=== PATIENT | male | born 1970 | race Caucasian/White ===

== ENCOUNTER 2022-11-27 18:20 | Outpatient (REF) | payer MEDICAID, SELFPAY ==
[2022-11-27 16:23] LABS: Anion Gap 14.6 mmol/L (3-11); BUN 79 mg/dL (7-18); CO2 30.4 mmol/L (21.0-32.0); CREATININE 2.3 mg/dL (0.70-1.30); Calcium 9.6 mg/dL (8.5-10.1); Chloride 88 mmol/L (98-107); Estimated GFR 33.33 (mL/min/1.73m2); Glucose 128 mg/dL (74-106); Sodium 133 mmol/L (136-145)
[2022-11-27 16:51] LABS: Potassium 2.4 mmol/L (3.5-5.1)
[2022-11-27 18:12] LABS: Magnesium 2.3 mg/dL (1.8-2.4); NT-proBNP 920 pg/mL (<300)
== END 2022-11-27 18:21 | disposition home or self-care (01) ==
LOC: LBN 18:20
DX: N18.32 Chronic kidney disease, stage 3b (principal); K70.31 Alcoholic cirrhosis of liver with ascites; I48.11 Longstanding persistent atrial fibrillation; I50.33 Acute on chronic diastolic (congestive) heart failure
CPT/HCPCS: 80048; 83735; 83880

== ENCOUNTER 2022-12-18 23:26 | Outpatient (REF) | payer MEDICAID, SELFPAY ==
[2022-12-18 21:03] LABS: Anion Gap 8.7 mmol/L (3-11); BUN 68 mg/dL (7-18); CO2 29.3 mmol/L (21.0-32.0); CREATININE 2.1 mg/dL (0.70-1.30); Chloride 91 mmol/L (98-107); Estimated GFR 37.18 (mL/min/1.73m2); Glucose 146 mg/dL (74-106); Sodium 129 mmol/L (136-145)
[2022-12-18 21:22] LABS: Potassium 2.9 mmol/L (3.5-5.1)
== END 2022-12-18 23:27 | disposition home or self-care (01) ==
LOC: LBN 23:26
DX: I50.33 Acute on chronic diastolic (congestive) heart failure (principal)
CPT/HCPCS: 80048

== ENCOUNTER 2022-12-31 14:56 | Outpatient (REF) | payer MEDICAID, SELFPAY ==
[2022-12-31 15:56] LABS: Anion Gap 8.4 mmol/L (3-11); BUN 54 mg/dL (7-18); CO2 30.6 mmol/L (21.0-32.0); CREATININE 1.5 mg/dL (0.70-1.30); Calcium 9.1 mg/dL (8.5-10.1); Chloride 93 mmol/L (98-107); Estimated GFR 55.67 (mL/min/1.73m2); Glucose 97 mg/dL (74-106); Sodium 132 mmol/L (136-145)
[2022-12-31 15:57] LABS: Magnesium 1.9 mg/dL (1.8-2.4)
[2022-12-31 16:08] LABS: Potassium 2.7 mmol/L (3.5-5.1)
== END 2022-12-31 14:57 | disposition home or self-care (01) ==
LOC: LBN 14:56
PROVIDERS: Visit Provider Family Medicine
DX: E83.42 Hypomagnesemia (principal)
CPT/HCPCS: 80048; 83735

== ENCOUNTER 2023-01-09 13:07 | Outpatient (REF) | payer MEDICAID, SELFPAY ==
[2023-01-09 12:32] LABS: Anion Gap 11.9 mmol/L (3-11); BUN 62 mg/dL (7-18); CO2 26.1 mmol/L (21.0-32.0); CREATININE 1.7 mg/dL (0.70-1.30); Calcium 8.8 mg/dL (8.5-10.1); Chloride 95 mmol/L (98-107); Estimated GFR 47.91 (mL/min/1.73m2); Glucose 99 mg/dL (74-106); Potassium 4.5 mmol/L (3.5-5.1); Sodium 133 mmol/L (136-145)
== END 2023-01-09 13:08 | disposition home or self-care (01) ==
LOC: LBN 13:07
PROVIDERS: Visit Provider Nurse Practitioner Family
DX: E87.6 Hypokalemia (principal)
CPT/HCPCS: 80048

== ENCOUNTER 2023-02-01 14:35 | Outpatient (REF) | payer MEDICAID, SELFPAY ==
[2023-02-01 15:19] LABS: Abs Immature Grans 0.03 10^3/uL (0.0-0.06); Absolute Basophil Count 0.05 10^3/uL (0.0-0.2); Absolute Eosinophil Count 0.18 10^3/uL (0.0-0.7); Absolute Lymphocyte Count 1.11 10^3/uL (1.2-3.4); Absolute Monocyte Count 0.83 10^3/uL (0.1-0.8); Absolute Neutrophil Count 3.41 10^3/uL (1.2-6.7); Basophils % 0.9; Eosinophils % 3.2; HCT 41.7 % (40.0-50.0); HGB 13.3 g/dL (13.5-17.5); Immature Grans % 0.5; Lymphocytes % 19.8; MCH 26.4 pg (27.0-33.0); MCHC 31.9 % (32.0-36.0); MCV 83 fL (80-95); MPV 10.6 fL (8.0-11.0); Monocytes % 14.8; Neutrophils % 60.8; Platelet Count 181 10^3/uL (130-400); RBC 5.04 10^6/uL (4.36-5.78); RDW 18.7 % (11.8-14.1); RDW-SD 54.8 fL; WBC 5.61 10^3/uL (4.4-10.8)
[2023-02-01 15:38] LABS: ALT 25 U/L (16-63); AST 38 U/L (15-37); Albumin 3.8 g/dL (3.4-5.0); Alkaline Phosphatase 263 U/L (46-116); BUN 64 mg/dL (7-18); Bilirubin, Total 2.6 mg/dL (0.2-1.0); Calcium 9.3 mg/dL (8.5-10.1); Chloride 95 mmol/L (98-107); Estimated GFR 39.42 (mL/min/1.73m2); Glucose 101 mg/dL (74-106); Potassium 4.3 mmol/L (3.5-5.1); Sodium 135 mmol/L (136-145); Total Protein 8.2 g/dL (6.4-8.2)
== END 2023-02-01 14:36 | disposition home or self-care (01) ==
LOC: LBN 14:35
DX: D50.9 Iron deficiency anemia, unspecified (principal); N18.31 Chronic kidney disease, stage 3a
CPT/HCPCS: 80053; 85025

== ENCOUNTER 2023-03-05 21:23 | Outpatient (REF) | payer MEDICAID, SELFPAY ==
[2023-03-05 16:24] LABS: CREATININE 1.9 mg/dL (0.70-1.30); Calcium 8.9 mg/dL (8.5-10.1); Chloride 89 mmol/L (98-107); Estimated GFR 41.92 (mL/min/1.73m2); Glucose 122 mg/dL (74-106); NT-proBNP 1776 pg/mL (<300); Potassium 3.5 mmol/L (3.5-5.1); Sodium 128 mmol/L (136-145)
[2023-03-05 16:51] LABS: BUN 95 mg/dL (7-18)
== END 2023-03-05 21:24 | disposition home or self-care (01) ==
LOC: LBN 21:23
PROVIDERS: Visit Provider Nurse Practitioner Family
DX: I50.33 Acute on chronic diastolic (congestive) heart failure (principal)
CPT/HCPCS: 80048; 83880